=== PATIENT | female | born 1960 ===

== ENCOUNTER 2025-07-07 10:18 | Outpatient (AMB) | payer BC, SELFPAY ==
--- OUTSIDE RECORDS SUMMARY | 2025-07-07 11:26 | XMS_ITS | Clinical Summary ---
Author Organization [facility] Address [address] [place] [address] Care Team Providers Care Timber Cutter Name Role Phone Unknown, Primary Care Provider Unavailabl e Social History Tobacco Use Types Packs/Day Years Used Date Smoking Tobacco: Never Assessed Sex and Gender Information Value Date Recorded Sex Assigned at Not on file Gender Identity Not on file Sexual Orientation Not on file Job Start Date Occupation Industry Not on file Not on file Not on file Plan of Treatment Health Maintenance Due Date Last Done Comments Hepatitis C Screening 1960 COVID-19 Vaccine (#1) 06/10/1961 Depression Screening 1972 Preventative Health Evaluation 1978 DTap / Tdap / Td (1 - Tdap) 1979 Cervical Cancer Screening (Pap Smear) 1981 Colon Cancer Screening (Colonoscopy) 2005 Breast Cancer Screening (Mammogram) 2010 Shingrix-Zoster Vaccine (1 o f 2) 2010 Influenza Vaccine (#1) 2025 , 09/01/2020, 08/12/2020 Pneumococcal Vaccine (1 of 1 - PCV) 2025 RSV Adult > 60+ Yrs or (1 - 1-dose 75+ series) 2035 Hepatitis B Vaccines Aged Out No long er eligible based on patient's age to complete this topic Pneumococcal Vaccine Aged Out No long er eligible based on patient's age to complete this topic RSV Ped < 20 months Aged Out No longe r eligible based on patient's age to complete this topic Care Teams Timber Cutter Relationship Specialty Start Date End Date Unknown, PCP - General 09/15/22
--- OUTSIDE RECORDS SUMMARY | 2025-07-07 11:26 | XMS_ITS | Patient Health Record ---
Author Organization [facility] Address [address] [place] [address] Support Name Relationship Address Phone GREGORIA HARTMANN Guarantor Unknown [phone] Reason For Referral No Information Medications Medication SIG (Take, Route, Fr equency, Duration) Notes Start Date End Date Status Vitamin D3 2000 IU 1 ORAL four times da mali; Duration: -3 Madi-MJ 03/02/2012 Active Multivitamins 1 ORAL daily; Duration: -3 Madi-MJ 2 Active Problems Problem Type SNOMED Code ICD Code Onset Dates Problem Status W/U Status Risk Notes Problem Malignant neoplasm of skin (928708348) Other malignant neoplasm of other specified sites of skin (173.8) Active confirmed Other Problem Anxiety state (032556082) Anxiety state, unspecified (300.00) Active confirmed Major Problem Allergic rhinitis (55267658) Allergic rhinitis, cause unspecified (477.9) Active confirmed Major Problem Unspecified backache (724.5) Active confirmed Major Plan Of Treatment No Information Insurance Providers Payer Name Payer Address Payer Phone Subscriber Number Group Number Insured Name Patient Relationship to Insured Coverage Start Date Coverage End Date C[employer] [address] [place] [address] [id number] DUDLEY HARTMANNILA Self - patient is the insured BCBS MEDICARE PPO [address] [place] [address] [id number] A RUBEN HARTMANN Spouse - patient is the spouse of the insured 2 2
== END 2025-07-08 10:16 | disposition home or self-care (01) ==
LOC: HO.HMGAL 10:18
PROVIDERS: PCP Nurse Practitioner Gerontology; Visit Provider Registered Nurse Emergency
DX: J30.89 Other allergic rhinitis (principal)
CPT/HCPCS: 95117; 95165

== ENCOUNTER 2025-09-10 16:00 | Outpatient (AMB) | payer BC, SELFPAY ==
--- OUTSIDE RECORDS SUMMARY | 2025-09-10 20:04 | XMS_ITS | Clinical Summary ---
Author Organization [facility] [address] [facility] Address [address] [place] [address] Phone Care Team Providers Care Metal Riveter Name Role Phone Virginia Woo OSCAR Primary Care Provider [phone] Allergies Active Allergy Reactions Criticality Noted Date Comments Sulfa (Sulfonamide Antibiotics) Nausea Only Medications estradioL (ESTRACE) 0.01 % (0.1 mg/gram) vaginal cream Insert 2 g into the vagina 1 (one) time each day. Active MULTIVITAMIN ORAL Take by mouth. Active Encounters Date Type Department Care Team Description 08/29/2025 Telephone Gastroenterology - [address] [place] [phone] Mima Mccarty [place] 08/25/2025 Telephone Gastroenterology - [address] [place] [phone] Genie Hamilton MD from Last 3 Months Social History Tobacco Use Types Packs/Day Years Used Date Smoking Tobacco: Never Assessed Comments Unknown Sex and Gender Information Value Date Recorded Sex Assigned at Not on file Legal Sex Female 11:40 PM EST Gender Identity Not on file Sexual Orientation Not on file Plan of Treatment Health Maintenance Due Date Last Done Comments DTaP,Tdap,and Td Vaccines (1 - Tdap) 1979 Cervical Cancer Screening: Pap Smear 1981 Pneumococcal Vaccine: 50+ Years (1 of 1 - PCV) 2010 Zoster Vaccines (1 of 2) 2010 HIV Screening 10/16/2022 Hepatitis C Screening 10/16/2022 Social Influencers of Health Screening 10/16/2022 Depression Screening 11/13/2024 Breast Cancer Screening 04/17/2025 04/17/20, 03/14/2022, 03/11/2021, Additional history exists COVID-19 Vaccine ( season) 2025 Influenza Vaccine (#1) 2025 Colorectal Cancer Screening: Colonoscopy 08/27/2035 08/27/2025, 08/27/2025, 08/27/2025, Additional history exists RSV Immunization Adult Patients (1 - 1-dose 75+ series) 2035 HIB Vaccines Aged Out No longer eligi ble based on patient's age to complete this topic HPV Vaccines Aged Out No longer eligi ble based on patient's age to complete this topic Hepatitis A Vaccines Aged Out No long er eligible based on patient's age to complete this topic Hepatitis B Vaccines Aged Out No long er eligible based on patient's age to complete this topic IPV Vaccines Aged Out No longer eligi ble based on patient's age to complete this topic MMR Vaccines Aged Out No longer eligi ble based on patient's age to complete this topic Meningococcal ACWY Vaccine Aged Out N o longer eligible based on patient's age to complete this topic Meningococcal B Vaccine Aged Out No l onger eligible based on patient's age to complete this topic RSV Immunization Patients Under 20 months Aged Out No longer eligible based on patient's age to complete this topic Varicella Vaccines Aged Out No longer eligible based on patient's age to complete this topic Procedures Procedure Name Priority Date/Time Associated Diagnosis Comments US ABDOMEN LIMITED Routine 08/27/2025 11 :[address] ABDOMEN PELVIS WO AND W CONTRAST Routine 08/27/2025 11:[address] ABDOMEN PELVIS WO AND W CONTRAST Routine 08/27/2025 11:05 AM EDT COLONOSCOPY Routine 08/27/2025 10:58 AM EDT COLONOSCOPY Routine 08/27/2025 10:57 AM EDT COLONOSCOPY Routine 08/27/2025 10:56 AM EDT COLONOSCOPY Routine 08/27/2025 10:54 AM EDT ARLEEN SCREENING DIGITAL Routine 04/17/2023 3:38 PM EDT Encounter for screening mammogram for malignant neoplasm of breast from Last 3 Months or Most Recently Relevant to Health Maintenance Results * US Abdomen Limited (08/27/2025 11:09 AM EDT) Anatomical Region Laterality Modality Body Ultrasound us Historical Provider IMG US PROCEDURES Final R esult * CT Abdomen Pelvis wo and w Contrast (08/27/2025 11:06 AM EDT) Only the most recent of2 resultswithin the time period is included. Anatomical Region Laterality Modality Body Computed Tomogra phy us Historical Provider IMG CT PROCEDURES Final R esult * COLONOSCOPY (08/27/2025 10:58 AM EDT) Only the most recent of4 resultswithin the time period is included. Anatomical Region Laterality Modality Endoscopy Historical Provider GI~PROCEDURE ORDERABLES F inal Result * ARLEEN SCREENING DIGITAL (04/17/2023 3:38 PM EDT) Anatomical Region Laterality Modality Mammography 04/17/2023 9:42 AM EDT Narrative 04/17/2023 3:38 PM EDT [facility] Diagnostic Imaging Department [address] [place] [address] Patient: GIANNAGREGORIA /Age/Sex: 1960 - 62 - F Unit#: [id number] Location/Status: SPDIMAM/REG CLI Mnemonic/Ordering Site: [facility] Ordering Physician: BEATRIS JACKSON MD [facility] Screening Digital - 04/17/23 - 1006 EXAM: [facility] Screening Digital EXAM DATE AND TIME: 04/17/2023 10:06 AM HISTORY: Screening. Right breast biopsy in 2017, pathology benign. Family history of breast carcinoma including mother at age 77 and sister. COMPARISON: 03/14/22, 03/11/21, 12/17/19, 07/25/18 TECHNIQUE: CC and MLO views of both breasts were obtained using full field digital mammography. Bilateral digital breast tomosynthesis was performed in the MLO projection. Computer aided detection with [employer] 7.2-H and [employer] 3D 3.1 was employed. TISSUE DENSITY: c. The breasts are heterogeneously dense, which may obscure small masses. FINDINGS: No suspicious masses, grouped microcalcifications, or areas of architectural distortion are seen. A 4 mm circumscribed nodule in the medial right breast remains stable, considered benign. A biopsy marker is again seen in the upper outer right breast. The skin and vascularity are unremarkable. IMPRESSION: Stable mammographic appearance of the breasts. No evidence of malignancy is seen. A negative mammogram in the presence of a clinically suspicious palpable abnormality does not preclude the possibility of malignancy or alter the indications for biopsy. BI-RADS: Category 2: Benign RECOMMENDATION(S): 1: Routine screening mammogram BILATERAL in 1 year. [address]158, 01728 3342F, 7025F Dictating Physician: DONY CASTILLO MD Electronically Signed by: DONY CASTILLO MD Dic Date/Time: 04/17/23 1537 Sign date/Time: 04/17/23 1538 Procedure Note Dony Castillo MD - 12/15/2023 [facility] Diagnostic Imaging Department [address] [place] [address] [id number] Patient: GREGORIA KATZ /Age/Sex: 1960 - 62 - F Unit#: [id number] Location/Status: [facility] Mnemonic/Ordering Site: [facility] Ordering Physician: BEATRIS JACKSON MD [facility] Screening Digital - 04/17/23 - 1006 EXAM: [facility] Screening Digital EXAM DATE AND TIME: 04/17/2023 10:06 AM HISTORY: Screening. Right breast biopsy in 2017, pathology benign.Family history of breast carcinoma including mother at age 77 and sister. COMPARISON: 03/14/22, 03/11/21, 12/17/19, 07/25/18 TECHNIQUE: CC and MLO views of both breasts were obtained using fullfield digital mammography. Bilateral digital breast tomosynthesis was performedin the MLO projection. Computer aided detection with [employer] 3D 3.1 was employed. TISSUE DENSITY: c. The breasts are heterogeneously dense, which mayobscure small masses. FINDINGS: No suspicious masses, grouped microcalcifications, or areas ofarchitectural distortion are seen. A 4 mm circumscribed nodule in the medial rightbreast remains stable, considered benign. A biopsy marker is again seen in theupper outer right breast. The skin and vascularity are unremarkable. IMPRESSION: Stable mammographic appearance of the breasts. No evidence of malignancyis seen. A negative mammogram in the presence of a clinically suspicious palpable abnormality does not preclude the possibility of malignancy or alter the indications for biopsy. BI-RADS: Category 2: Benign RECOMMENDATION(S): 1: Routine screening mammogram BILATERAL in 1 year. 29532, 21496 3342F, 7025F Dictating Physician: DONY CASTILLO MD Electronically Signed by: DONY CASTILLO MD Dic Date/Time: 04/17/23 1537 Sign date/Time: 04/17/23 1538 Beatris Jackson MD IMG BI PROCEDURES Final Resu lt from Last 3 Months or Most Recently Relevant to Health Maintenance Insurance [facility] Care Teams Metal Riveter Relationship Specialty Start Date End Date Virginia Woo FNP [address] [place] [address] PCP - General Family Medicine 08/25/25
--- OUTSIDE RECORDS SUMMARY | 2025-09-10 20:04 | XMS_ITS | Clinical Summary ---
Author Organization [facility] Address [address] [place] [address] Care Team Providers Care Food Service Name Role Phone Unknown, Primary Care Provider [...] age to complete this topic Care Teams Food Service Relationship Specialty Start Date End Date Unknown, PCP - General 09/15/22
--- OUTSIDE RECORDS SUMMARY | 2025-09-10 20:05 | XMS_ITS | Patient Health Record ---
Author Organization [facility] Address [address] [place] [address] Support Name Relationship Address Phone GREGORIA HARTMANN Guarantor Unknown [phone] Reason For Referral No Information Medications Medication SIG (Take, Route, Fr equency, Duration) Notes Start Date End Date Status Vitamin D3 2000 IU 1 ORAL four times da mali; Duration: -3 Madi-MJ 03/02/2012 Active Multivitamins 1 ORAL daily; Duration: -3 Madi-MJ 2 Active Problems Problem Type SNOMED Code ICD Code Onset Dates Problem Status W/U Status Risk Notes Problem Malignant neoplasm of skin (573934584) Other malignant neoplasm of other specified sites of skin (173.8) Active confirmed Other Problem Anxiety state (305315466) Anxiety state, unspecified (300.00) Active confirmed Major Problem Allergic rhinitis (57316376) Allergic rhinitis, cause unspecified (477.9) Active confirmed Major Problem Backache (217283464) Unspecified backache (724.5) Active confirmed Major Plan Of Treatment No Information Insurance Providers Payer Name Payer Address Payer Phone Subscriber Number Group Number Insured Name Patient Relationship to Insured Coverage Start Date Coverage End Date C[employer] [address] [place] [address] [id number] DUDLEY HARTMANNILA Self - patient is the insured BCBS MEDICARE PPO [address] [place] [address] [id number] Mitul RUBEN HARTMANN Spouse - patient is the spouse of the insured 2 2
--- OUTSIDE RECORDS SUMMARY | 2025-09-10 20:05 | XMS_ITS | Data Portability ---
Author Organization [place] - [facility],, BEATRIS DUVAL MD Address [address] [facility] [address] [place] [address] Care Team Providers Care Biology Intern Name Role Phone MARSHA ALLA Primary Care Provider [phone] Assessment No assessment recorded. Plan of Treatment Reminders Order Date Submit Date Provider Last Modified By Organization Details Last Modified Time Details Appointments None recorde d. Lab cytolog y report, thin prep, smear or scrapin g, cervica l or vaginal 2024 025 ALFRED [facility] (Centralized Electronic Ordering - All Locations), Patient Can Go To The Location Of Their Choice, [id number] 12:15:54 hemoglo bin, gastroi ntestin al, stool 2024 025 [email or web address] 1 In-Office Order, Internal Use Only DO Not Attach Compendium DO Not Attach Compendium, Do Not Delete/merge, [id number] 10:12:31 pap test, thinpre p, cervica l 2023 024 [email or web address] [facility] (Centralized Electronic Ordering - All Locations), Patient Can Go To The Location Of Their Choice, [id number] 4 08:31:00 hemoglo bin, gastroi ntestin al, stool 2023 024 [email or web address] 1 In-Office Order, Internal Use Only DO Not Attach Compendium DO Not Attach Compendium, Do Not Delete/merge, [id number] 09:07:26 pap test, thinpre p, cervica l 2022 023 [facility] (Centralized Electronic Ordering - All Locations), Patient Can Go To The Location Of Their Choice, [id number] 3 07:54:38 fecal occult blood, stool 2022 023 [email or web address] 1 In-Office Order, Internal Use Only DO Not Attach Compendium DO Not Attach Compendium, Do Not Delete/merge, [id number] 09:05:[address] referra l - more than a year of worseni ng urinary stress inconti nence despite using estradi ol vaginal cream. She also has a urethra l prolaps e. 2024 025 [facility] Urogynecologist Scheduling Dept, [address] [place], [address], 5 07:21:28 breast center referra l - Tyrer-C uzick is 41.5%, she is BRCA negativ e, for inclusi on in high risk program 2022 023 [facility], [address], [place], [address], 3 16:20:56 Procedures None recorde d. Surgeries None recorde d. Imaging MAMMO, screeni ng, digital , bilater al - Breast Aspirat ion and/or Biopsy if needed 2024 025 [facility], [address], [place], [address], 5 11:51:57 MAMMO, screeni ng, digital , bilater al - Breast Aspirat ion and/or Biopsy if needed 2023 024 [facility], [address], [place], [address], 5 07:25:20 MAMMO, screeni ng, digital , bilater al - Breast Aspirat ion and/or Biopsy if needed [facility] [address] [facility] [address] [place], [address], 09:43:23 Medication Orders estradi ol 0.01% (0.1 mg/gram ) vaginal cream 2023 024 [id number], [address] [place], [address], 09:07:29 Patient TargetsNo targets recorded. Patient Instructions Encounter Date Encounter Id Patient Instructions Last Modified By Organization Details Last Modified Time 04/06/2023 [id number] atrophic vaginitis: care instructions Not available 04/06/2023 09:38:52 This visit is a phone telehealth visit. The patient consented to the visit by phone. The patient was at home at the time of the call and the provider and patient were the only people on the line. I was at [address] [facility], [address], [place], [place], at the time of the call. She is having hot flashes, warm sensation and feel like my skin is in a plastic bag and the heat won't go away she has vaginal dryness, no sex drive and gama all the time. She has a sister who is BRCA positive, the patient is BRCA negative. Her mother and her sister had breast cancer. She has not had menses since age 54. She gets night sweats, and hot flashes during the day when she has anxiety. She never tried herbal therapy. She has been using the estradiol vaginal cream consistently in the past week, an already I feel a difference. She is working 46 hours a week and I',m just tired all he time. She notes loss of libido. She also wonders if she may be depressed, and we discussed having her talk to her PCP about this, she agrees to do so. We had a long discussion about all this. She would prefer to try an herbal supplement if it would help. We discussed remifemin sarahi retana nad she will try that. Libido issues discussed. All questions answered. She will let ne know in 4 weeks if she wants to consider HRT but for now she wants to give the Remifemin a chance, and see how she improves with the vaginal estradiol now that she is taking it regularly. The patient was agreeable to this plan. She is aware of the limitations caused by the covid restrictions, and this phone call, but was appreciative of the efforts to complete the evaluation. Face to face discussion 30 minutes Not available 04/06/2023 09:46:02 04/28/2023 [id number] learning about healthy weight Not available 04/28/2023 09:05:52 She is here for annual exam, is doing well. her sister is BRCA positive and had breast cancer, her mother had breast cancer. the patient is BRCA negative. She had another sister whao had breast cancer but was never tested, declined testing, is bipolar. She has noted a few weeks of left breast pain and would like that investigated. She is still having vasomotor symptoms, she did not start the black cohash because her sister had a rare reaction to it and had to go to the hospital. __ Note from 2021: She is her or annual exam, is doing well. She had a sonogram last year: The ultrasound shows a normal size uterus with 4 small fibroids, each is an inch or less and are shrinking compared to the prior sonogram. ____ She appears to be doing well. We discussed Nicol Briscoe and she would like to do that and be referred to a high risk breast program if she qualifies. they can look into the left breast pain. She will do the telehealth next week. Monthly self breast exam was taught, and stressed, and is advised to call if she discovers any new mass in the breast. Not available 04/28/2023 09:09:30 05/05/2023 [id number] This visit is a phone telehealth visit. The patient consented to the visit by phone. The patient was at home at the time of the call and the provider and patient were the only people on the line. I was at [address] [place] [address], [address], [place], [place], at the time of the call. She is BRCA negative however she has a strong family history of breast cancer in her mother and in her sister, neither of them had BRCA testing. She would like to do a Tyrer-Felipeck, top see if she can participate in a high risk breast program. the test was done and she has a 41.5% lifetime risk of development of breast cancer. she would like ot be referred to a high risk program., We discussed annual MRI, etc, nad she would like to participate in that level of care program. All questions answered, referral generated. The patient was agreeable to this plan. She is aware of the limitations caused by the covid restrictions, and this phone call. Face to face discussion 14 minutes Not available 05/05/2023 10:38:32 05/02/2024 [id number] urethrocele: car e instructions Not available 05/02/2024 09:07:26 learning about healthy weight Not available 05/02/2024 09:07:25 She is here for annual exam, is doing well. her sister is BRCA positive and had breast cancer, her mother had breast cancer. the patient is BRCA negative. She had another sister who had breast cancer but was never tested, declined testing, is bipolar. She is using estradiol vaginal cream for her symptomatic urethral prolapse, but has only used one half a tube over an entire year so is not using enough of it. She is still symptomatic. She does go to a urologist for this as well. __ Note form 2022: She is here for annual exam, is doing well. her sister is BRCA positive and had breast cancer, her mother had breast cancer. the patient is BRCA negative. She had another sister whao had breast cancer but was never tested, declined testing, is bipolar. She has noted a few weeks of left breast pain and would like that investigated. She is still having vasomotor symptoms, she did not start the black cohash because her sister had a rare reaction to it and had to go to the hospital. She appears to be doing well. . She goes to the [facility] high risk breast cancer program. Monthly self breast exam was taught, and stressed, and is advised to call if she discovers any new mass in the breast. On exam: 3 mm, red prolapse of meatus, no bleeding, not friable She will increase the use of the estradiol until she is using one tube every 3 months or so, she has been using it three times a week. All questions answered. Follow up with urology. Not available 05/02/2024 09:06:31 05/09/2025 [id number] urethrocele: car e instructions Not available 05/09/2025 10:08:44 learning about healthy weight Not available 05/09/2025 10:08:44 bladder training : care instructions Not available 05/09/2025 10:08:44 kegel exercises: care instructions Not available 05/09/2025 10:08:44 Stress Incontinence: Care Instructions Not available 05/09/2025 10:08:44 She is here for annual exam, and also she notes worsening stress urinary incontinence. She has been using a small amount of estradiol vaginal cream topically to her urethral prolapse 5 or 6 times a week, but the last time she filled a tube was 04/2024 and she still has more than half the tube left so she is not using enough of it. We had discussed this last year, as well. Note from 2023: She is here for annual exam, is doing well. her sister is BRCA positive and had breast cancer, her mother had breast cancer. the patient is BRCA negative. She had another sister who had breast cancer but was never tested, declined testing, is bipolar. She is using estradiol vaginal cream for her symptomatic urethral prolapse, but has only used one half a tube over an entire year so is not using enough of it. She is still symptomatic. She does go to a urologist for this as well. Not from 2022: She is here for annual exam, is doing well. her sister is BRCA positive and had breast cancer, her mother had breast cancer. the patient is BRCA negative. She had another sister whao had breast cancer but was never tested, declined testing, is bipolar. She has noted a few weeks of left breast pain and would like that investigated. She is still having vasomotor symptoms, she did not start the black cohash because her sister had a rare reaction to it and had to go to the hospital. ___ She is again advised to use one half gram vaginally daily, so that a tube would be used up in 3 months. She requests referral to pressure control supervisor urology, this is done. She declines refill at this time, notes she has 1 1/2 tubes left at home already. She appears to be doing well. Monthly self breast exam was taught, and stressed, and is advised to call if she discovers any new mass in the breast. Not available 05/09/2025 10:13:04 Reason for Referral Breast Center Referral for A t high risk for malignant neoplasm of breast Liu is 41.5%, she is BRCA negative, for inclusion in high risk program Referring Physician: Betaris Duval, Gynecology, Encounter Date: 05/05/2023 Urologist Referral for Femal e urinary stress incontinence more than a year of worsening urinary stress incontinence despite using estradiol vaginal cream. She also has a urethral prolapse. Referring Physician: Beatris Duval Gynecology, Encounter Date: 05/09/2025 Results Created Date Observation Date Name Description Value Unit Range Abnormal Flag Note LastModifiedBy Organization Detail LastModifiedTime 04/28/2004/28/2023 [facility] OGY results Patie nt Name: GENO HARTMANN nt : 1960 (Age: 62) Lab Acces [place] #: [id number] Colle ction Date: 2022 Acces [place] Date: 2022 Sign Out Date: 023 Tissu e Sourc e: 1: THINP REP MEDICAL OFFICER PSYCHIATRY PAP TEST, CERVI ALEKSANDER: Final Diagn osis: NEGAT FEDERICO FOR INTRA EPITH ELIAL LESIO N OR LEENA REAL . Satis facto ry for evalu ation . Endoc ervic al/tr ansfo rmati on zone prese nt. Clini aleksander Histo ry: Date of Last Menst rual Perio d: not avail able Menst rual Histo ry: not avail able Contr acept federico Histo ry: not avail able Girmail lisa lemus: HPV (ASCU S) Case image d by the ThinP rep Hermelindo staley with sammi corley or neymar pacheco Perfronn rmed at [facility] ate Refer ence Labor atory depar tment of Cytol ogy, [address] [place] Clini aleksander Histo ry (othe r): Z01.4 19, LPS-6 -16-2 2-NEG Phone #: [phone], On-Ca ll Patho logis t: [id number] Not Available [facility] (Centralized Electronic Ordering - All Locations) Patient Can Go To The Location Of Their Choice, [id number] 05/16/2023 14:12:43 04/28/20 23 04/28/2023 fecal occul t blood , stool Occult Blood negati ve Not Available In-Office Order Internal Use Only DO Not Attach Compendium DO Not Attach Compendium, Do Not Delete/merge, [id number] 04/28/2023 08:39:16 05/02/20 24 05/06/2024 IGP, RFX APTIM A HPV ASCU diagnosis: Commen t NEGAT FEDERICO FOR INTRA EPITH ELIAL GIULIA Morgan OR LEENA REAL . Not Available [facility] ([facility]) [address] [place], [address], 05/06/2024 14:06:27 05/02/20 24 05/06/2024 IGP, RFX APTIM A HPV ASCU specimen adequacy: Commen t Satis facto ry for evalu ation . Endoc ervic al and/o r squam ous metap lasti c cells (endo cervi aleksander compo nent) are prese nt. Not Available [facility] ([facility]) [address] [facility], [place], [address], 05/06/2024 14:06:27 05/02/20 24 05/06/2024 IGP, RFX APTIM A HPV ASCU clinician provided ICD10: Commen t Z01.4 19 Not Available [facility] ([facility]) [address] [facility], [place], [address], 05/06/2024 14:06:27 05/02/20 24 05/06/2024 IGP, RFX APTIM A HPV ASCU performed by: Maribel t Kiki Multani , Bhavya summers (ASCP ) Not Available [facility] ([facility]) [address] [place], [address], 05/06/2024 14:06:27 05/02/20 24 05/06/2024 IGP, RFX APTIM A HPV ASCU . . Not Available [facility] ([facility]) [address] [facility], [place], [address], 05/06/2024 14:06:27 05/02/20 24 05/06/2024 IGP, RFX APTIM A HPV ASCU note: Commen t The Pap smear is a scree marco test desig tello to aid in the detec tion of mariya ligna nt and malig nant condi tions of the uteri ne cervi x. It is not a diagn ostic proce dure and shoul d not be used as the sole means of detec ting cervi aleksander cance r. Both false -posi tive and false -nega tive repor ts do occur . Not Available [facility] ([facility]) [address] [place], [address], 05/06/2024 14:06:27 05/02/20 24 05/06/2024 IGP, RFX APTIM A HPV ASCU . Commen t The HPV DNA refle x crite jeanna were not met with this speci men resul t there fore, no HPV testi ng was perfo rmed. Not Available [facility] ([facility]) [address] [facility], [place], [address], 05/06/2024 14:06:27 05/02/20 24 05/02/2024 hemog lobin , gastr ointe conner l, stool Occult Blood negati ve Not Available In-Office Order Internal Use Only DO Not Attach Compendium DO Not Attach Compendium, Do Not Delete/merge, [id number] 05/02/2024 09:07:18 05/09/2005/13/2025 IGP, RFX APTIM A HPV ASCU diagnosis: Maribel WHALEN FEDERICO FOR INTRA EPITH ELIAL LESIO N OR LEENA REAL . Not Available [facility] ([facility]) [address] [facility], [place], [address], 05/13/2025 12:15:54 05/09/2005/13/2025 IGP, RFX APTIM A HPV ASCU specimen adequacy: Maribel summers Satis facto ry for evalu ation . Endoc ervic al and/o r squam ous metap lasti c cells (endo cervi aleksander compo nent) are prese nt. Not Available [facility] ([facility]) [address] [place], [address], 05/13/2025 12:15:54 05/09/20 25 05/13/2025 IGP, RFX APTIM A HPV ASCU clinician provided ICD10: Maribel summers Z01.4 19 Not Available [facility] ([facility]) [address] [place], [address], 05/13/2025 12:15:54 05/09/20 25 05/13/2025 IGP, RFX APTIM A HPV ASCU performed by: Maribel koo, Cytol ogist (ASCP ) Not Available [facility] ([facility]) [address] [place], [address], 05/13/2025 12:15:54 05/09/20 25 05/13/2025 IGP, RFX APTIM A HPV ASCU . . Not Available [facility] ([facility]) [address] [place], [address], 05/13/2025 12:15:54 05/09/20 25 05/13/2025 IGP, RFX APTIM A HPV ASCU note: Commen t The Pap smear is a scree marco test desig tello to aid in the detec tion of mariya ligna nt and malig nant condi tions of the uteri ne cervi x. It is not a diagn ostic proce dure and shoul d not be used as the sole means of detec ting cervi aleksander cance r. Both false -posi tive and false -nega tive repor ts do occur . Not Available [facility] ([facility]) [address] [facility], [place], [address], 05/13/2025 12:15:54 05/09/20 25 05/13/2025 IGP, RFX APTIM A HPV ASCU test methodology: Commen t This liqui d based ThinP rep(R ) pap test was scree tello with the use of an image guide ben staley. Not Available [facility] ([facility]) [address] [facility], [place], [address], 05/13/2025 12:15:54 05/09/2005/13/2025 IGP, RFX APTIM A HPV ASCU . Commen t The HPV DNA refle x crite jeanna were not met with this speci men resul t there fore, no HPV testi ng was perfo rmed. Not Available [facility] ([facility]) [address] [facility], [place], [address], 05/13/2025 12:15:54 05/09/20 25 05/09/2025 hemog lobin , gastr ointe conner l, stool Occult Blood negati ve Not Available In-Office Order Internal Use Only DO Not Attach Compendium DO Not Attach Compendium, Do Not Delete/merge, [id number] 05/09/2025 09:43:54 04/18/20 23 04/17/2023 MAMMO , scree marco, digit al, bilat eral No observ ation record ed. [facility] (Central Scheduling Radiology) [address] [place], [address], 04/18/2023 09:48:43 06/01/20 23 06/01/2023 US, anton siegel, ren ete No observ ation record ed. [facility] Diagnosit Imaging Dept [address] [place], [address], 06/01/2023 11:21:05 Result Notes None recorded. 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 EL Roman in [facility], 09:58:17 Atrophic vaginitis 99669947 Active 2020 Beatris Duval MD [address], [place], [address], [place] - [facility], 1 10:18:17 Uterine leiomyoma 25102869 Active 2020 Beatris Duval MD [address], [place], [address], [place] [facility], 1 10:18:54 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 Beatris Duval MD [address], [place], [address], [place] [facility], 3 09:38:29 Lack of libido 839745708 Active 2022 eBatris Duval MD [address], [place], [address], [place] [facility], 3 09:38:45 Family history of malignant neoplasm of breast in first degree relative 992281192 Active 2022 mother nad sister, sister is BRCA positive, the patient is BRCA negative Beatris Duval MD [address], [place], [address], [place] - [facility], 3 09:07:38 At high risk for malignant neoplasm of breast 821303423145 102 Active 2022 Beatris Duval MD [address], [place], [address], [place] [facility], 3 10:06:03 Prolapse of urethra 12256205 Active 2023 Beatris Duval MD [address], [place], [address], [place] - [facility], 4 09:06:10 Female urinary stress incontine ine 15116199 Active 2024 Beatris Duval MD [address], [place], [address], [place] [facility], 5 10:07:15 Notes:Uterine fibroids Problem Notes None recorded. Procedures Surgical History Date Name Laterality Status Provider Name and Address Organization Details Recorded Time 5 Most Recent Mammogram completed Mikki López [place] - [facility], 05/09/2025 09:43:34 2 Most Recent Bone Density completed Mikki López [place] - [facility] in [facility], 04/28/2023 08:43:26 Imaging Results None recorded. Procedure Notes None recorded. Medical Equipment None Reported. Allergies Allergen ID Allergen Name Allergen Category Reaction Reaction Severity Criticality Documentation Date Start Date Code Code System Note Provider Name and Address Organization Details Recorded Time 66728 Substance with sulfonami de structure and antibacte rial mechanism of action (substanc e) medicatio n nausea Not available Not available 01/07/2021 [id number] 8003 SNOMED [facility], 1 09:45:29 Medications Name Sig Start Date Stop Date Status Note LastModified by Organization Details LastModified Time penicillin V potassium 250 mg tablet TAKE 1 TABLET BY MOUTH 4 TIMES DAILY DIRECTED. 03/30 completed Not Available Not Available Not Available fluconazole 100 mg tablet TAKE ONE TABLET BY MOUTH EVERY DAY 05/09 completed Not Available Not Available Not Available ofloxacin 0.3 % eye drops INSTILL ONE DROP TO THE LEFT EYE FOUR TIMES A DAY . 03/30 completed Not Available Not Available Not Available tretinoin 0.025 % topical cream APPLY A PEA SIZE AMOUNT TO FACE AT BEDTIME TOLERATED ; FOLLOW APPLICATI ON WITH A MOISTURIZ ER; START WITH EVERY OTHER NIGHT AND WORK UP TO 05/02 completed Not Available Not Available Not Available fluorouraci l 5 % topical cream APPLY A THIN LAYER TO AFFECTED AREA S) ON NOSE TWO TIMES A DAY FOR 3 WEEKS; EXPECT REDNESS, CRUSTING, AND IRRITATIO N. WASH HANDS AFTER APPLI 05/02 completed Not Available Not Available Not Available nystatin 500,000 unit tablet TAKE TWO TABLETS BY MOUTH TWICE A DAY 05/09 completed Not Available Not Available Not Available amoxicillin 500 mg tablet TAKE ONE TABLET BY MOUTH EVERY 8 HOURS UNTIL GONE 03/30 completed Not Available Not Available Not Available Flarex 0.1 % eye drops,suspe nsion INSTILL ONE DROP IN THE LEFT EYE FOUR TIMES A DAY DIRECTED 03/30 completed Not Available Not Available Not Available Refresh Classic (PF) 1.4 %-0.6 % eye drops in a dropperette 04/28 completed Not Available Not Available Not Available loteprednol etabonate 0.5 % eye drops,suspe nsion INSTILL ONE DROP IN EACH EYE TWO TIMES A DAY 03/30 completed Not Available Not Available Not Available estradiol 0.01% (0.1 mg/gram) vaginal cream INSERT 0.5GM VAGINALLY ONCE DAILY active Not Available Not Available No t Available fluocinonid e 0.05 % topical cream APPLY A THIN LAYER TO AFFECTED AREA OF CHEST TWO TIMES A DAY FOR 2 WEEKS. STOP FOR 1 WEEK. REPEAT IF NEEDED 05/09 completed Not Available Not Available Not Available cyclobenzap rine 5 mg tablet TAKE ONE TABLET BY MOUTH TWICE A DAY NEEDED FOR MUSCLE SPASMS 03/30 completed Not Available Not Available Not Available magnesium active with d3 Not Available Not Available Not Available GaviLyte-G 236 gram-22.74 gram-6.74 gram-5.86 gram oral solution MIX AND DRINK 8 OUNCES BY MOUTH DIRECTED 01/07 completed Not Available Not Available Not Available Multi For Her active Not Available Not Available Not Available Procto-Med HC 2.5 % topical cream perineal applicator APPLY 1.5 GRAMS TO AFFECTED AREA TWICE A DAY DIRECTED 05/02 completed Not Available Not Available Not Available Vitals Date Recorded Body height Provider Name an d Address Organization Details Last Updated DateTime 04/06/2023 154.94 cm Pilar reyes in [facility], 04/06/2023 09:17:53 Date Recorded Body height Body mass index (BMI) Body weight Heart rate Body temperature Systolic And Diastolic Provider Name and Address Organization Details Last Updated DateTime 3 154.94 cm 18.9 kg/m2 96781.5 2 g 68 /min 98.1 [degF] 131/55 mm[Hg] Mikki Thompson in [facility], 3 08:39:56 Date Recorded Body height Body mass index (BMI) Body weight Body temperature Heart rate Systolic And Diastolic Provider Name and Address Organization Details Last Updated DateTime 4 154.94 cm 19.3 kg/m2 38359.4 2 g 97.9 [degF] 74 /min 119/54 mm[Hg] cecil Thompson in [facility], 4 08:38:31 Date Recorded Body height Provider Name an d Address Organization Details Last Updated DateTime 05/05/2023 154.94 cm Mikki reyes in [facility], 05/05/2023 09:53:02 Date Recorded Body height Body mass index (BMI) Body weight Heart rate Systolic And Diastolic Provider Name and Address Organization Details Last Updated DateTime 05/09/2025 154.94 cm 18.9 kg/m2 16305.24 g 73 /min 124/54 mm[Hg] Mikki Thompson in [facility], 05/09/2025 09:39:02 Social History Question Answer Notes LastModified by Organizat ion Details LastModified Time Tobacco Smoking Status Never Smoker Pilar barrera [place] [facility], 01/07/2021 09:51:20 Do You Have An Advance Directive? No Information n ot available 01/07/2021 How Many Years Have You Consumed Alcohol? 40 Information not available 04/28/2022 What Is Your Level Of Caffeine Consumption? Moderate Information not available 01/07/2021 How Much Tobacco Do You Chew? None Information not available 01/07/2021 In The 14 Days Before Symptom Onset, Have You Had Close Contact With A Laboratory-confirm ed COVID-19 While That Case Was Ill? No Information n ot available 01/07/2021 In The 14 Days Before Symptom Onset, Have You Had Close Contact With A Person Who Is Under Investigation For COVID-19 While That Person Was Ill? No Information not available 01/07/2021 Have You Been To An Area Known To Be High Risk For COVID-19? No Information not available 01/07/2021 What Type Of Diet Are You Following? REGULAR Information n ot available 01/07/2021 Do You Reside In Or Have You Traveled To An Area Where Ebola Virus Transmission Is Active? No Information not available 01/07/2021 Education 12 Information no t available 01/07/2021 What Is The Highest Grade Or Level Of School You Have Completed Or The Highest Degree You Have Received? [id number] Information not available 04/28/2022 Who Is Your Employer? [employer] Information not available 05/09/2025 Are There Any Guns Present In Your Home? No Information not available 01/07/2021 High Number Of Sexual Partners No Information not available 01/07/2021 To Which Gender Do You Self-identify? Female Information n ot available 01/07/2021 Marital Status Informatio n not available 01/07/2021 What Was The Date Of Your Most Recent Tobacco Screening? 05/09/2025 Information not available 05/09/2025 What Is Your Relationship Status? Information not available 04/28/2022 Seat Belts Used Routinely Yes Information not available 01/07/2021 Are You Sexually Active? Yes Information not available 01/07/2021 Smoke Alarm In Home Yes Information not available 01/07/2021 How Much Tobacco Do You Smoke? No Information not available 01/07/2021 General Stress Level Medium Information not available 01/07/2021 Do You Use Sunscreen Routinely? Yes Information not available 01/07/2021 Have You Recently (within The Last 12 Weeks, Or During A Current ) Traveled To Or Lived In A Zika-affected Area? No Information not available 01/07/2021 How Many Days In The Past Year Have You Consumed 4 Or More Drinks? 20 Information not available 04/28/2022 Sex: Female Functional Status Question Answer Note LastModified by Organizat ion Details LastModified Time Do you use any illicit or recreational drugs? No Information not available 04/28/2022 Do you or have you ever used any other forms of tobacco or nicotine? No Information not available 04/06/2023 What is your level of alcohol consumption? Occasional socially Information not available 01/07/2021 Do you or have you ever used smokeless tobacco? Never used smokeless tobacco Information not available 01/07/2021 Are you currently employed? Yes Information not available 04/28/2022 Do you or have you ever used e-cigarettes or vape? Never used electronic cigarettes Information not available 01/07/2021 What is your exercise level? Moderate Information not available 01/07/2021 Mental Status Question Answer Note LastModified by Organization D etails LastModified Time Do you feel stressed (tense, restless, nervous, or anxious, or unable to sleep at night)? [id number] Information not available 04/28/2022 Family History Relationship Description Onset Age of this Age Resolved Age Notes LastModified by Organization Details LastModified Time Mother Malignant neoplasm of breast 73 Due to calcif icatio n Not available 01/07/2021 09:49:41 Sister Malignant neoplasm of breast 63 two sister s had breast cancer : only one was tested . one sister is BRCA positi ve, this sister was never tested , is biploa r Not available 04/28/2023 09:08:43 Medical History Condition Response Anesthesia complications N High Blood Pressure N Candidate for MyRisk panel Y Autoimmune Condition N Depression N Lung Disease N Defects or Inherited Disease N History of Ovarian Cancer N BRCA testing in past N Anxiety Disorder Y Arthritis N Infertility N History of Cancer N Endometriosis N Kidney or Bladder Problems N Thyroid Problems N GI Problems N Anemia N History of Breast Cancer N [place] exposure N Osteopenia N Psychiatric Illness N Diabetes N Headaches or Migraines N Asthma N Hepatitis N Heart Disease N Hypertension N Osteoporosis N Gynecological History Statement/Question Response If Post Menopausal, Age at Menopause 54 Age at Menarche 12 Most Recent Mammogram 04/30/2025 Age at First Child 33 Most Recent Bone Density 06/22/2022 Obstetrics History GPAL:G 2 P 2 0 0 2 Type Value Full Term 2 Living 2 Total 2 Immunizations Vaccine Type Date Status Note Provider Nam e and Address Organization Details Recorded Time Influenza, split virus, quadrivalent, preservative 0 completed EL Roman in [facility], 01/07/2021 09:48:00 Influenza, MDCK, quadrivalent, PF 8 completed EL Matos in [facility], 04/28/2023 08:40:25 Influenza, MDCK, quadrivalent, PF 1 completed EL Matos in [facility], 04/28/2023 08:40:25 Influenza, MDCK, quadrivalent, PF 7 completed EL Matos in [facility], 04/28/2023 08:40:25 Influenza, MDCK, quadrivalent, preservative 9 completed EL Matos in [facility], 04/28/2023 08:40:25 COVID-19, mRNA, LNP-S, PF, 100 mcg/0.5mL dose or 50 mcg/0.25mL dose 1 completed Mikki Meczywor null, [place] - [facility], 04/28/2023 08:40:25 COVID-19, mRNA, LNP-S, PF, 100 mcg/0.5mL dose or 50 mcg/0.25mL dose 1 completed Mikki Meczywor null, [place] - [facility], 04/28/2023 08:40:25 Tdap 2 completed Mikki Meczywor null, [place] - [facility], 04/28/2023 08:40:25 Influenza, split virus, trivalent, preservative 2 completed Mikki Meczywor null, [place] - [facility], 04/28/2023 08:40:25 Influenza, split virus, trivalent, preservative 6 completed Mikki Meczywor null, [place] - [facility], 04/28/2023 08:40:25 Influenza, split virus, quadrivalent, PF 0 completed Mikki Meczywor null, [place] - [facility], 04/28/2023 08:40:25 Influenza, split virus, quadrivalent, preservative 1 completed Mikki Meczywor null, [place] - [facility], 05/05/2023 09:53:14 Past Encounters Encounter ID Performer Location Encounter Start Date Encounter Closed Date Diagnosis/Indication Diagnosis SNOMED-CT Code Diagnosis ICD10 Code Diagnosis IMO Codes Diagnosis Note [id number] MD BEATRIS Malik MD [address] [facility] [address] [place] [address] 01/07/2021 09:27:39 01/07/2021 12:59:19 Specialized medical examination 87759927 Z01.419 Screening for malignant neoplasm of rectum 919523271 Z12.12 Screening mammography 24 567333 Z12.31 Atrophic vaginitis 32278 000 N95.2 Uterine leiomyoma 845083 05 D25.9 [id number] MD BEATRIS Malik MD [address] [place] [address],[address] [place] [address] 04/28/2022 08:27:49 04/28/2022 14:47:01 Specialized medical examination 41346799 Z01.419 Screening for malignant neoplasm of rectum 196413943 Z12.12 Screening mammography 24 580218 Z12.31 Menopausal syndrome 1237 35371 N95.8 Polyp of urethra 6992840 1 N36.2 [id number] MD BEATRIS Malik MD [address] [place] [address],[place] [address] 03/30/2023 10:06:39 03/30/2023 13:00:11 Pain of left breast 1291869124 N64.4 [id number] MD BEATRIS Malik MD [address] [place] [address], [place] [address] 04/06/2023 09:16:17 04/06/2023 10:13:43 Menopausal syndrome 985330900 N95.8 Atrophic vaginitis 85588 000 N95.2 Anxiety 86034439 F41.9 Lack of libido 452843519 R68.82 [id number] MD BEATRIS Malik MD [address] [place] [address], [place] [address] 04/28/2023 08:34:54 04/28/2023 10:22:16 Specialized medical examination 49249016 Z01.419 Screening for malignant neoplasm of rectum 131612733 Z12.12 Screening mammography 24 032816 Z12.31 Family his tory of malignant neoplasm of breast in first degree relative 393230197 Z80.3 [id number] MD BEATRIS Malik MD [address] [place] [address],[place] [address] 05/05/2023 09:48:06 05/05/2023 10:49:42 At high risk for malignant neoplasm of breast 8872338916 68077 Z91.89 [id number] MD BEATRIS Malik MD [address] [place] [address],[place] [address] 05/02/2024 08:34:59 05/02/2024 09:55:51 Specialized medical examination 97641736 Z01.419 Screening for malignant neoplasm of rectum 246789079 Z12.12 Screening mammography 24 490973 Z12.31 Atrophic vaginitis 39505 000 N95.2 At high ri sk for malignant neoplasm of breast 7265361593 48549 Z91.89 Prolapse of urethra 1206 8006 N81.0 [id number] MD BEATRIS Malik MD [address] [facility],[address] [place] [address] 05/09/2025 09:33:17 05/09/2025 11:51:57 Specialized medical examination 28029759 Z01.419 Screening for malignant neoplasm of rectum 447727139 Z12.12 Screening mammography 24 822725 Z12.31 Prolapse of urethra 1206 8006 N81.0 Family his tory of malignant neoplasm of breast in first degree relative 443633953 Z80.3 Female uri nary stress incontinence 89319221 N39.3 9361699 Health Concerns Section Related Observation LastModified by Organization Detai ls LastModified Time None Recorded Concern Status LastModified by Organization Details LastModified Time None Recorded Advance Directives Directive N: Payers Insurance Date Sequence Insurance Name Policy Number Policy Patterson Covered Member ID Patterson Member ID Guarantor Name 05/06/2025 1 PRINCE [id number] Layne Hartmann [id number] Layne Hartmann Notes Date Note Type Note Provider Name and Address Organization Details Recorded Time 04/06/2023 text/html This visit is a phone telehealth visit. The patient consented to the visit by phone. The patient was at home at the time of the call and the provider and patient were the only people on the line. I was at [address] [facility], [address], [place], [place], at the time of the call. She is having hot flashes, warm sensation and feel like my skin is in a plastic bag and the heat won't go away she has vaginal dryness, no sex drive and gama all the time. She has a sister who is BRCA positive, the patient is BRCA negative. Her mother and her sister had breast cancer. She has not had menses since age 54. She gets night sweats, and hot flashes during the day when she has anxiety. She never tried herbal therapy. She has been using the estradiol vaginal cream consistently in the past week, an already I feel a difference. She is working 46 hours a week and I',m just tired all he time. She notes loss of libido. Beatris Duval MD [address] [place] [address],[address], [place], [phone], [facility], 04/06/2023 10:10:47 04/28/2023 text/html She is here for annual exam, is doing well. her sister is BRCA positive and had breast cancer, her mother had breast cancer. the patient is BRCA negative. She had another sister whao had breast cancer but was never tested, declined testing, is bipolar. She has noted a few weeks of left breast pain and would like that investigated. She is still having vasomotor symptoms, she did not start the black cohash because her sister had a rare reaction to it and had to go to the hospital. _ Note from 2021: She is her or annual exam, is doing well.She had a sonogram last year:The ultrasound shows a normal size uterus with 4 small fibroids, each is an inch or less and are shrinking compared to the prior sonogram. Beatris Duval MD [address] [place] [address],[place] [address], [place], [phone], [facility], 04/28/2023 09:09:54 05/05/2023 text/html This visit is a phone telehealth visit. The patient consented to the visit by phone.The patient was at home at the time of the call and the provider and patient were the only people on the line.I was at [address] [place] [address], [place] [address], [place], at the time of the call. She is BRCA negative however she has a strong family history of breast cancer in her mother and in her sister, neither of them had BRCA testing. She would like to do a Tyrer-zick, top see if she can participate in a high risk breast program. Beatris Duval MD [address] [place] [address],[place] [address], [place], [phone], [place] - [facility], 05/05/2023 10:38:48 05/02/2024 text/html She is here for annual exam, is doing well. her sister is BRCA positive and had breast cancer, her mother had breast cancer. the patient is BRCA negative. She had another sister who had breast cancer but was never tested, declined testing, is bipolar. She is using estradiol vaginal cream for her symptomatic urethral prolapse, but has only used one half a tube over an entire year so is not using enough of it. She is still symptomatic. She does go to a urologist for this as well. Note form 2022: She is here for annual exam, is doing well. her sister is BRCA positive and had breast cancer, her mother had breast cancer. the patient is BRCA negative. She had another sister whao had breast cancer but was never tested, declined testing, is bipolar.She has noted a few weeks of left breast pain and would like that investigated.She is still having vasomotor symptoms, she did not start the black cohash because her sister had a rare reaction to it and had to go to the hospital. Beatris Duval MD [address] [facility],[address], [place], [address], [place] [facility], 05/02/2024 09:07:48 05/09/2025 text/html She is here for annual exam, and also she notes worsening stress urinary incontinence. She has been using a small amount of estradiol vaginal cream topically to her urethral prolapse 5 or 6 times a week, but the last time she filled a tube was 04/2024 and she still has more than half the tube left so she is not using enough of it. We had discussed this last year, as well. Note from 2023: She is here for annual exam, is doing well. her sister is BRCA positive and had breast cancer, her mother had breast cancer. the patient is BRCA negative. She had another sister who had breast cancer but was never tested, declined testing, is bipolar.She is using estradiol vaginal cream for her symptomatic urethral prolapse, but has only used one half a tube over an entire year so is not using enough of it. She is still symptomatic. She does go to a urologist for this as well. Not from 2022: She is here for annual exam, is doing well. her sister is BRCA positive and had breast cancer, her mother had breast cancer. the patient is BRCA negative. She had another sister whao had breast cancer but was never tested, declined testing, is bipolar.She has noted a few weeks of left breast pain and would like that investigated.She is still having vasomotor symptoms, she did not start the black cohash because her sister had a rare reaction to it and had to go to the hospital. Beatris Duval MD [address] [place] [address],[address], [facility] [phone], [place] [facility], 05/09/2025 10:13:24 OBGyn Episode No OBEpisode recorded.
== END 2025-09-10 16:02 | disposition home or self-care (01) ==
LOC: HO.HMGAL 16:00
PROVIDERS: PCP Nurse Practitioner; Visit Provider Registered Nurse Emergency
DX: J30.89 Other allergic rhinitis (principal)
CPT/HCPCS: 95117; 95165